=== PATIENT | male | born 1970 | race Caucasian/White ===

== ENCOUNTER 2017-01-21 20:27 | Emergency (ER) | payer SELFPAY ==
[2017-01-21 20:39] VITALS: BP 142/96
--- NOTE | 2017-01-21 20:52 | UC ---
Shoulder Pain HPI - History of Current Complaint Chief Complaint: UCTrauma Stated Complaint: WC INJURY Time Seen by Provider: 01/21/17 20:43 Hx Obtained From: Patient Onset/Duration: Sudden Onset Timing: Constant Severity Initially: Moderate Severity Currently: Moderate Pain Scale Used: 0-10 Numeric - 7 - Allergies/Home Medications Allergies/Adverse Reactions: Allergies Allergy/AdvReac Type Severity Reaction Status Date / Time vinegar Allergy Rash Uncoded 01/21/17 20:39 Home Medications: Home Medications ALPRAZolam TAB* [Xanax TAB*] 1 tab PO DAILY 01/21/17 [History Confirmed 01/21/17 ] PMH/Surg Hx/FS Hx/Imm Hx Previously Healthy: Yes - Surgical History Surgical History: Yes Surgery Procedure, Year, and Place: complex fx of tib/fib - josephine and plates right ankle - 03/17/12 - Social History Alcohol Use: None Substance Use Type: None Smoking Status (MU): Never Smoked Tobacco - Immunization History Most Recent Tetanus Shot: less then 5 yrs Review of Systems Constitutional: Negative Skin: Negative Eyes: Negative ENT: Negative Respiratory: Negative Cardiovascular: Negative Gastrointestinal: Negative Genitourinary: Negative Motor: Negative Neurovascular: Negative Musculoskeletal: Arthralgia, Myalgia, Other: - RIGHT SHOULDER PAIN RIGHT RIB PAIN Neurological: Negative Psychological: Negative All Other Systems Reviewed And Are Negative: Yes Physical Exam Triage Information Reviewed: Yes Vital Signs: Initial Vital Signs Temp 36.7 C 01/21/17 20:34 Pulse 80 01/21/17 20:34 Resp 18 01/21/17 20:34 BP 142/96 01/21/17 20:34 Pulse Ox 99 01/21/17 20:34 Eye Exam: Normal ENT Exam: Normal Dental Exam: Normal Neck exam: Normal Neck: Positive: 1 Respiratory Exam: Normal Cardiovascular Exam: Normal Abdominal Exam: Normal Musculoskeletal: Positive: Other: - RIGHT SHOULDER RIGHT RIB PAIN Neurological Exam: Normal Psychological Exam: Normal Skin Exam: Normal Shoulder Course/Dx - Differential Dx/Diagnosis Provider Diagnoses: RIGHT RIB PAIN. RIGHT SHOULDER PAIN Discharge - Discharge Plan Condition: Stable Disposition: HOME Prescriptions: Ibuprofen TAB* [Motrin TAB* 800 MG] 800 mg PO Q8H PRN #30 tab PRN Reason: Pain Methocarbamol TAB* [Robaxin 500 MG TAB*] 500 mg PO TID PRN #30 tab PRN Reason: Spasms - Back Patient Education Materials: Shoulder Sprain (ED), Rib Contusion (ED) Forms: *Work Release Referrals: Matias Gabriel MD [Primary Care Provider] -
[2017-01-21] MEDS ORDERED: Ibuprofen TAB* 800 MG PO ONE (20:54)
[2017-01-21] MEDS ORDERED: Ibuprofen TAB* 400 MG PO ONE (20:59)
== END 2017-01-21 21:23 | disposition home or self-care (01) ==
LOC: UCEAST 20:27
DX: M25.511 Pain in right shoulder (principal); M89.8X8 Other specified disorders of bone, other site
CPT/HCPCS: 99202; A9270-GY; G0463